=== PATIENT | female | born 1950 | race Caucasian/White ===

== ENCOUNTER 2018-01-30 07:44 | Day surgery (SDC) | payer MEDICARE | END 2018-01-30 22:46 | disposition home or self-care (01) | LOC: MOI US 07:44 | PROC: 0HBT3ZX Excision of Right Breast, Percutaneous Approach, Diagnostic (ICD-10-PCS; principal; 2018-01-30) | DX: C50.911 Malignant neoplasm of unspecified site of right female breast (principal); Z17.0 Estrogen receptor positive status [ER+] | CPT/HCPCS: 19083; 19084; 38505; 76942; 77065; 88305; 88360; A4648; G0279 ==

== ENCOUNTER 2018-03-09 10:05 | Day surgery (SDC) | payer MEDICARE ==
[~2018-03-09] VITALS: Ht 157.5 cm; Wt 79.4 kg
[~2018-03-09 10:05] MED LIST: ALPR.5 PO; ASPI81CH PO; Advil200 M1 PO; CHOL10002 PO; FISH OIL 1,2001 EAC1 PO; Flonase 0.05% N16 GM; LORA1SY PO; MAGOXI400 PO; [UNRECOGNIZED DRUG - OTHER]; [UNRECOGNIZED DRUG - OTHER] PO
== END 2018-03-09 13:56 | disposition home or self-care (01) ==
LOC: ORSCMMR 10:05 → ORD 11:30 → ORSCMMR 11:30 → ORD 03-10 11:30
PROVIDERS: Surgery
PROC: B5131ZA Fluoroscopy of Right Jugular Veins using Low Osmolar Contrast, Guidance (ICD-10-PCS; principal; 2018-03-09 14:45)
PROC: 05HM33Z Insertion of Infusion Device into Right Internal Jugular Vein, Percutaneous Approach (ICD-10-PCS; principal; 2018-03-09 14:45)
DX: C50.411 Malignant neoplasm of upper-outer quadrant of right female breast (principal); C50.919 Malignant neoplasm of unspecified site of unspecified female breast; C77.3 Secondary and unspecified malignant neoplasm of axilla and upper limb lymph nodes; Z17.0 Estrogen receptor positive status [ER+]; I10 Essential (primary) hypertension; J44.9 Chronic obstructive pulmonary disease, unspecified; Z87.891 Personal history of nicotine dependence; Z79.82 Long term (current) use of aspirin; Z79.899 Other long term (current) drug therapy
CPT/HCPCS: 77001; C1788; J0690; J1642; J2250; J2370; J2405; J3010; J7120

== ENCOUNTER 2018-10-23 07:11 | Day surgery (SDC) | payer MEDICARE ==
[2018-10-26] MEDS ORDERED: LO-DOSE ASPIRIN81 MG PO (13:21)
[2018-10-26] MEDS ORDERED: ALBU90OI61 INH (13:22)
[2018-10-26] MEDS ORDERED: LOSA25 PO (13:22)
== END 2018-10-23 23:14 | disposition home or self-care (01) ==
LOC: MOI MAM 07:11 → MOI US 07:45 → MOI MAM 23:14
DX: C50.411 Malignant neoplasm of upper-outer quadrant of right female breast (principal); C77.3 Secondary and unspecified malignant neoplasm of axilla and upper limb lymph nodes
CPT/HCPCS: 19285; 19286; 77065; G0279

== ENCOUNTER 2018-10-25 11:08 | Day surgery (SDC) | payer MEDICARE ==
[2018-10-26] MEDS ORDERED: LO-DOSE ASPIRIN81 MG PO (13:21)
[2018-10-26] MEDS ORDERED: LOSA25 PO (13:22)
[2018-10-26] MEDS ORDERED: ALBU90OI61 INH (13:22)
== END 2018-10-25 22:51 | disposition home or self-care (01) ==
LOC: MOI US 11:08
PROC: BH40ZZZ Ultrasonography of Right Breast (ICD-10-PCS; principal; 2018-10-25)
DX: C77.3 Secondary and unspecified malignant neoplasm of axilla and upper limb lymph nodes (principal); C50.411 Malignant neoplasm of upper-outer quadrant of right female breast
CPT/HCPCS: 19285

== ENCOUNTER 2018-10-27 07:44 | Day surgery (SDC) | payer MEDICARE ==
[~2018-10-27] VITALS: Ht 157.5 cm; Wt 84.8 kg
[~2018-10-27 07:44] MED LIST changes: +ALBU90OI61 INH; +LO-DOSE ASPIRIN81 MG PO; +LOSA25 PO
--- NOTE | 2018-10-27 13:10 | NUR ---
10/27/18 1310 Kathy Glez RXS UPDATED PT'S MULTIPLE TIMES WHILE PT IN OR.
== END 2018-10-27 15:17 | disposition home or self-care (01) ==
LOC: ORSCSDS 07:44 → NM 09:00 → ORSCSDS 09:00
PROVIDERS: Surgery
PROC: 0HBT0ZZ Excision of Right Breast, Open Approach (ICD-10-PCS; principal; 2018-10-27 10:15)
PROC: 07B50ZZ Excision of Right Axillary Lymphatic, Open Approach (ICD-10-PCS; principal; 2018-10-27 10:15)
DX: C50.411 Malignant neoplasm of upper-outer quadrant of right female breast (principal); C77.3 Secondary and unspecified malignant neoplasm of axilla and upper limb lymph nodes; I10 Essential (primary) hypertension; J44.9 Chronic obstructive pulmonary disease, unspecified; Z87.891 Personal history of nicotine dependence; Z79.899 Other long term (current) drug therapy; Z79.82 Long term (current) use of aspirin; Z85.118 Personal history of other malignant neoplasm of bronchus and lung
CPT/HCPCS: 38792; 76098; 88307; A9270-GY; A9520; J0690; J1100; J2250; J2370; J2405; J2704; J3010; J7120; Q9968

== ENCOUNTER 2018-12-01 08:29 | Day surgery (SDC) | payer MEDICARE ==
[~2018-12-01] VITALS: Ht 157.5 cm; Wt 86.4 kg
--- NOTE | 2018-12-01 09:10 | NUR ---
Ambulatory in Day Surgery.PT REPORTS FEELING ANXIOUS-SHE TOOK A XANAX @ 0730 THIS AM.History, Chart, Medications and Allergies reviewed before start of procedure.Lungs clear T/O to Auscultation. Patient confirms NPO status and agrees with scheduled surgery. Patient reports completing Chlorhexadine shower X2 prior to admission to hospital.Surgical site prepped with 2% Chlorhexidine cloth wipe. Patient States Post-Procedure ride home has been arranged.
--- NOTE | 2018-12-01 11:46 | NUR ---
RECEIVED REPORT FROM DR BENSON. HE STATES TO PLACE FACE TENT. PT IS SLEEPING. VSS. RT BR ESPERANZA CDI.
--- NOTE | 2018-12-01 12:13 | NUR ---
PT AWAKE, CONVERSING WITH STAFF UPON ARRIVAL TO STEP. STATES "NUMBNESS" TO BREAST AREA. NO C/O PAIN. TO BEDSIDE.
--- NOTE | 2018-12-01 12:33 | NUR ---
PT MEDICATED FOR DISCOMFORT FOR RIDE HOME. PT STATES SHE HAD COMPLICATED COURSE AFTER PREVIOUS SURGERY RELATED TO PAIN CONTROL AND IS VERY NERVOUS ABOUT PAIN CONTROL AFTER THIS PROCEDURE. DISCUSSED STAYING ON TOP OF PAIN AND NOT "CHASING" IT. PT VERBALIZES UNDERSTANDING AND AGREEMENT.
--- NOTE | 2018-12-01 13:11 | NUR ---
SUMMARY: PT HAD UNCOMPLICATED POST PROCEDURE COURSE. PAIN CONTROLLED BY DISCHARGE. ABLE TO DRESS SELF AND AMBULATE IN DEPARTMENT - STEADY ON FEET. PO INTAKE WITHOUT DIFFICULTY. REVIEWED DISCHARGE INSTRUCTIONS WITH PATIENT AND , BOTH OF WHOM VERBALIZE UNDERSTANDING AND ARE ABLE TO REPEAT PERTINENT INFORMATION. IV DC TIP INTACT AND PATIENT DC HOME AMBULATORY. TO DRIVE HER. DRESSING TO RIGHT BREAST AREA CDI. BINDER IN PLACE.
== END 2018-12-01 23:08 | disposition home or self-care (01) ==
LOC: ORSCMMR 08:29 → ORD 12-22 07:30
PROVIDERS: Surgery
PROC: 0HBT0ZZ Excision of Right Breast, Open Approach (ICD-10-PCS; principal; 2018-12-01 10:00)
DX: C50.411 Malignant neoplasm of upper-outer quadrant of right female breast (principal); C77.3 Secondary and unspecified malignant neoplasm of axilla and upper limb lymph nodes; I10 Essential (primary) hypertension; F41.9 Anxiety disorder, unspecified; Z79.899 Other long term (current) drug therapy; Z87.891 Personal history of nicotine dependence
CPT/HCPCS: 88307; A9270-GY; J0690; J1100; J2250; J2405; J2704; J3010; J7120

== ENCOUNTER 2020-05-29 08:22 | Inpatient (IN) | payer MEDICARE ==
[~2020-05-29] VITALS: Ht 157.5 cm; Wt 86.1 kg
[~2020-05-29 08:22] MED LIST changes: -ALBU90OI61 INH; -ALPR.5 PO; -CHOL10002 PO; -Flonase 0.05% N16 GM; -LO-DOSE ASPIRIN81 MG PO; -LOSA25 PO; -MAGOXI400 PO; -[UNRECOGNIZED DRUG - OTHER]; -[UNRECOGNIZED DRUG - OTHER] PO
[2020-05-29 08:35] LABS: Base Excess Venous -8.4 mmol/L; Bicarbonate Venous 17.7 mmol/L (24.0-30.0); PCO2 Venous 47.5 mmHg (38-42); PO2 Venous 98.8 mmHg (38-42)
[2020-05-29 08:36] LABS: pH Blood Venous 7.22 (7.34-7.37)
[2020-05-29 08:49] LABS: BASOPHILS ABSOLUTE AUTO 0.06 K/mm3 (0.00-0.23); BASOPHILS PERCENT AUTO 1 % (0-2); EOSINOPHILS ABSOLUTE AUTO 0.13 K/mm3 (0.00-0.68); EOSINOPHILS PERCENT AUTO 1 % (0-6); Hematocrit 48.2 % (33.0-51.0); Hemoglobin 15.9 g/dL (11.5-16.0); IMMATURE GRAN ABSOLUTE AUTO 0.12 K/mm3 (0.00-0.10); IMMATURE GRAN PERCENT AUTO 1 % (0-1); LYMPHOCYTES ABSOLUTE AUTO 3.72 K/mm3 (0.84-5.20); LYMPHOCYTES PERCENT AUTO 37 % (21-46); MONOCYTES ABSOLUTE AUTO 0.75 K/mm3 (0.16-1.47); MONOCYTES PERCENT AUTO 8 % (4-13); Mean Corpuscular HGB 31.3 pg (26.0-34.0); Mean Corpuscular Volume 95 fL (80-100); Mean Platelet Volume 9.8 fL (9.1-12.4); NEUTROPHILS ABSOLUTE AUTO 5.19 K/mm3 (1.96-9.15); NEUTROPHILS PERCENT AUTO 52 % (41-73); Platelet Count 225 K/mm3 (150-400); RDW Standard Deviation 45.7 fL (35.1-46.3); Red Blood Cell Count 5.08 M/mm3 (3.80-5.20); White Blood Cell Count 9.97 K/mm3 (4.00-11.30)
[2020-05-29 09:12] LABS: Alanine Aminotransfer (ALT/SGP 69 U/L (12-78); Albumin, Blood 3.4 g/dL (3.4-5.0); Albumin/Globulin Ratio 0.8 (0.8-1.8); Alk Phos 102 U/L (50-136); Anion Gap 11 mmol/L (6-16); Aspartate Aminotrans (AST/SGOT 69 U/L (12-37); Bilirubin, Total 0.5 mg/dL (0.1-1.0); Blood Urea Nitrogen 14 mg/dL (8-24); Bun/Creatinine Ratio 21.7 (12.0-20.0); CO2, Blood 22 mmol/L (21-32); Chloride, Blood 101 mmol/L (98-108); Creatinine, Blood 0.65 mg/dL (0.40-1.00); Globulin, Blood 4.1 g/dL (2.2-4.0); Glomerular Filtration Rate >60 (60-); Glucose, Blood 317 mg/dL (70-99); Potassium, Blood 3.9 mmol/L (3.5-5.5); Sodium, Blood 134 mmol/L (136-145); Total Protein, Blood 7.5 g/dL (6.4-8.2); Troponin I <0.015 ng/mL (0.000-0.040)
[2020-05-29] MEDS ORDERED: LOSA25 PO (12:15)
[2020-05-29] MEDS ORDERED: ALPR.25 PO (12:16)
[2020-05-29] MEDS ORDERED: ALBU90OI61 INH (12:16)
[2020-05-29] MEDS ORDERED: ARIMIDEX1 M1 PO (12:17)
[2020-05-29] MEDS ORDERED: Flonase 0.05% N16 GM (12:19)
[2020-05-29] MEDS ORDERED: MAGOXI400 PO (12:35)
[2020-05-29] MEDS ORDERED: VITAMIN D325 MC3 PO (12:36)
[2020-05-29] MEDS ORDERED: ASPIR 8181 M1 PO (12:37)
[2020-05-29] MEDS ORDERED: [UNRECOGNIZED DRUG - OTHER] PO (12:37)
[2020-05-29] MEDS ORDERED: [UNRECOGNIZED DRUG - OTHER] PO (12:38)
[2020-05-29] MEDS ORDERED: CALCIUM PO (12:38)
--- NOTE | 2020-05-29 14:08 | NUR ---
Echocardiogram completed.
[2020-05-29 14:41] LABS: Adenovirus Not Detected (NOT DETECT); Bordetella pertussis Not Detected (NOT DETECT); Chlamydophila pneumoniae Not Detected (NOT DETECT); Coronavirus 229E Not Detected (NOT DETECT); Coronavirus HKU1 Not Detected (NOT DETECT); Coronavirus NL63 Not Detected (NOT DETECT); Coronavirus OC43 Not Detected (NOT DETECT); Human Metapneumovirus Not Detected (NOT DETECT); Human Rhinovirus/Enterovirus Detected (NOT DETECT); Influenza A/2009-H1 Not Detected (NOT DETECT); Influenza A/H1 Not Detected (NOT DETECT); Influenza A/H3 Not Detected (NOT DETECT); Influenza B Not Detected (NOT DETECT); Mycoplasma pneumoniae Not Detected (NOT DETECT); Parainfluenza Virus 1 Not Detected (NOT DETECT); Parainfluenza Virus 2 Not Detected (NOT DETECT); Parainfluenza Virus 3 Not Detected (NOT DETECT); Parainfluenza Virus 4 Not Detected (NOT DETECT); Respiratory Syncytial Virus Not Detected (NOT DETECT); SARS-Cov-2 (COVID-19), BioFire Not Detected (NOT DETECT)
--- NOTE | 2020-05-29 18:47 | NUR ---
SUMMARY PT ARRIVED TO ICU 4 FROM ER AT 1310 ON BIPAP. PT TOLERATING BIPAP WELL, CALM AND COOPERATIVE. ECHO DONE ON ADMIT. THIS EVENING PT IS ABLE TO TAKE A BREAK FROM BIPAP WITHOUT DISTRESS. ON 4L NC WHILE ON BREAK. PT RECEIVED LASIX IN ER. NO DISTRESS SINCE ARRIVAL TO ICU. USES CALL LIGHT APPROPRIATELY AND GETS OOB WITH MINIMAL ASSISTANCE.
[2020-05-30 04:32] LABS: BASOPHILS ABSOLUTE AUTO 0.02 K/mm3 (0.00-0.23); BASOPHILS PERCENT AUTO 0 % (0-2); EOSINOPHILS ABSOLUTE AUTO 0.05 K/mm3 (0.00-0.68); EOSINOPHILS PERCENT AUTO 1 % (0-6); Hematocrit 41.7 % (33.0-51.0); IMMATURE GRAN ABSOLUTE AUTO 0.05 K/mm3 (0.00-0.10); IMMATURE GRAN PERCENT AUTO 1 % (0-1); LYMPHOCYTES PERCENT AUTO 17 % (21-46); MONOCYTES ABSOLUTE AUTO 0.64 K/mm3 (0.16-1.47); MONOCYTES PERCENT AUTO 10 % (4-13); Mean Corpuscular HGB 31.4 pg (26.0-34.0); Mean Corpuscular HGB Conc 33.6 g/dL (31.5-36.5); Mean Corpuscular Volume 94 fL (80-100); Mean Platelet Volume 9.4 fL (9.1-12.4); NEUTROPHILS ABSOLUTE AUTO 4.61 K/mm3 (1.96-9.15); NEUTROPHILS PERCENT AUTO 71 % (41-73); Platelet Count 169 K/mm3 (150-400); RDW Coefficient Variation 13.2 % (11.7-14.2); RDW Standard Deviation 45.2 fL (35.1-46.3); Red Blood Cell Count 4.46 M/mm3 (3.80-5.20); White Blood Cell Count 6.47 K/mm3 (4.00-11.30)
[2020-05-30 04:37] LABS: PCO2 Arterial 46.6 mmHg (35-45); PO2 Arterial 84.1 mmHg (80-100); pH Blood Arterial 7.41 (7.35-7.45)
[2020-05-30 04:57] LABS: Anion Gap 5 mmol/L (6-16); Blood Urea Nitrogen 14 mg/dL (8-24); Bun/Creatinine Ratio 21.4 (12.0-20.0); C-REACTIVE PROTEIN, EXT RANGE 0.424 mg/dL (0.000-0.300); CO2, Blood 29 mmol/L (21-32); Calcium, Blood 8.3 mg/dL (8.5-10.1); Chloride, Blood 102 mmol/L (98-108); Creatinine, Blood 0.65 mg/dL (0.40-1.00); Glomerular Filtration Rate >60 (60-); Glucose, Blood 107 mg/dL (70-99); Potassium, Blood 3.6 mmol/L (3.5-5.5); Sodium, Blood 136 mmol/L (136-145); Troponin I 0.083 ng/mL (0.000-0.040)
--- NOTE | 2020-05-30 05:44 | NUR ---
SHIFT SUMMARY PT A&O X4. CALL TO SKIVER OPERATOR RHIANNON THIS SHIFT @ APPROX 1945 D/T PT REPORT OF "I'M GETTING A LITTLE ANXIOUS." PT REQUESTING HOME DOSE OF XANAX. SKIVER OPERATOR W/ 1X ORDER FOR PRN XANAX & INSTRUCTION FOR HOME MEDS TO BE FURTHER ADDRESSED BY DAY SHIFT MD. XANAX GIVEN PER EMAR W/ NO FURTHER ANXIETY THIS SHIFT. PT VSS. MONITOR SHOWS NSR, HR 70's-80's. SPO2 > 92% ON 4L NC UPON CARE ASSUMPTION, TITRATED TO 2L NC W/ PT TOLERATING WELL. LUNG SOUNDS W/ WHEEZE. BREATHING TX PROVIDED BY RT X1 THIS SHIFT W/ IMPROVEMENT. BIPAP ON STANDBY AT BEDSIDE. NO FURTHER EVENTS.
--- NOTE | 2020-05-30 08:00 | NUR ---
Assumed care of pt at 0700. Bedside report received from Rita NAVARRETE. Pt sleeping at time of report. On assessment, pt is A&O x 4. Answers questions. Follows commands. Verbalizes needs. Stands and mobilizes around room with supervision. Pt steady on feet. Denies shortness of breath with activity. SR per monitor. BP stable. Voids urine into toilet. Nitro paste removed from left chest wall, as order is no longer active. Pt denies chest pain. Bed in lowest position. Call light in reach. Pt denies need at this time.
--- NOTE | 2020-05-30 12:58 | NUR ---
Dr Humphrey and Dr Boone have both been in to see patient. Pt states she would like to stay overnight because she isn't quite feeling back to baseline. Both providers agreee that patient is okay for medical floor status with telemetry. Dr Humphrey is okay with patient having home xanax. States plan to discontinue rocephin. Pt has been sitting up in chair since breakfast, tolerating well.
--- NOTE | 2020-05-30 16:21 | NUR ---
Call placed to Dr Humphrey to ask if patient needs cardiology consultation for new diagnosis of heart failure. Pt sees Dr Villagomez as outpatient for hypertension. Provider states pt only needs to follow up with simulation developer as outpatient. This RN placed call to heart center to schedule appointment, but office is closed. Instructed patient to call office on Tuesday morning. Also educated pt and her spouse about daily weights and measuring blood pressure daily, before taking daily meds. Instructed to write down weights and BP and take to doctor appointments. Pt and spouse verbalize understanding of education.
--- NOTE | 2020-05-30 16:44 | NUR ---
Pt assigned to room 361. Telephone report given to Verónica NAVARRETE. Pt updated. Plan to transfer patient to room when room is clean. Pt remains A&O x 4. Independent in room. Visiting with spouse at bedside. Pt took shower, tolerated well. Pt remains on room air. SR per heart monitor.
--- NOTE | 2020-05-30 17:20 | NUR ---
SHIFT SUMMARY/TRANSFER PT TRANSFERED FROM ICU TO 361. PT ORIENTED TO ROOM. CALL LIGHT IN REACH. PT UP IN CHAIR, EATING DINNER. ICE WATER PROVIDED. PT STATES SHE HAS NO NEEDS AT THIS TIME. SPOUSE IN ROOM, SITTING AT BEDSIDE.
--- NOTE | 2020-05-31 00:05 | NUR ---
05/30/201944 PT UP AMBULATING AROUND ENTIRE LOOP OF HALLS.
--- NOTE | 2020-05-31 04:46 | NUR ---
SHIFT SUMMARY: 69 Y/O OBESE FEMALE RESTED COMFORTABLY ALL SHIFT; DENIES PAIN OR NAUSEA OR DYSPNEA; PT ABLE TO AMBULATE ENTIRE LOOP OF HALLS WITH THIS NURSE, GAIT STEADY AND EVEN WITHOUT ISSUE; EAGER TO RETURN HOME; BED LOW POSITION WITH CALL LIGHT AT SIDE.
[2020-05-31 05:23] LABS: BASOPHILS ABSOLUTE AUTO 0.03 K/mm3 (0.00-0.23); BASOPHILS PERCENT AUTO 1 % (0-2); EOSINOPHILS ABSOLUTE AUTO 0.07 K/mm3 (0.00-0.68); EOSINOPHILS PERCENT AUTO 1 % (0-6); Hematocrit 41.7 % (33.0-51.0); IMMATURE GRAN ABSOLUTE AUTO 0.03 K/mm3 (0.00-0.10); IMMATURE GRAN PERCENT AUTO 1 % (0-1); LYMPHOCYTES PERCENT AUTO 20 % (21-46); MONOCYTES ABSOLUTE AUTO 0.65 K/mm3 (0.16-1.47); MONOCYTES PERCENT AUTO 11 % (4-13); Mean Corpuscular HGB 31.3 pg (26.0-34.0); Mean Corpuscular HGB Conc 33.6 g/dL (31.5-36.5); Mean Corpuscular Volume 93 fL (80-100); Mean Platelet Volume 9.8 fL (9.1-12.4); NEUTROPHILS ABSOLUTE AUTO 4.13 K/mm3 (1.96-9.15); NEUTROPHILS PERCENT AUTO 68 % (41-73); Platelet Count 168 K/mm3 (150-400); RDW Coefficient Variation 13.2 % (11.7-14.2); RDW Standard Deviation 44.9 fL (35.1-46.3); Red Blood Cell Count 4.47 M/mm3 (3.80-5.20); White Blood Cell Count 6.11 K/mm3 (4.00-11.30)
[2020-05-31 05:48] LABS: Alanine Aminotransfer (ALT/SGP 59 U/L (12-78); Albumin, Blood 3.5 g/dL (3.4-5.0); Alk Phos 77 U/L (50-136); Anion Gap 6 mmol/L (6-16); Aspartate Aminotrans (AST/SGOT 43 U/L (12-37); Bilirubin, Total 0.7 mg/dL (0.1-1.0); Blood Urea Nitrogen 21 mg/dL (8-24); Bun/Creatinine Ratio 33.9 (12.0-20.0); CHOL/HDL RATIO 3.1; CO2, Blood 28 mmol/L (21-32); Calcium, Blood 8.6 mg/dL (8.5-10.1); Chloride, Blood 100 mmol/L (98-108); Cholesterol 212 mg/dL (50-200); Creatinine, Blood 0.62 mg/dL (0.40-1.00); Globulin, Blood 3.6 g/dL (2.2-4.0); Glomerular Filtration Rate >60 (60-); Glucose, Blood 97 mg/dL (70-99); HDL Cholesterol 69 mg/dL (>39); LDL/HDL RATIO 1.6; Low Density Lipoprotein Chol 111 mg/dL (0-110); Potassium, Blood 3.3 mmol/L (3.5-5.5); Sodium, Blood 134 mmol/L (136-145); Total Protein, Blood 7.1 g/dL (6.4-8.2); Triglycerides 159 mg/dL (30-160); Very Low Density Lipoprot Chol 31 mg/dL (6-32)
[2020-05-31] MEDS ORDERED: METO25ER PO (16:30)
[2020-05-31] MEDS ORDERED: FURO20 PO (16:31)
[2020-05-31] MEDS ORDERED: POTCHL20ER PO (16:31)
[2020-05-31] MEDS ORDERED: ANAS1 PO (16:32)
--- NOTE | 2020-05-31 17:15 | NUR ---
DISCHARGED PT DISCHARGED AFTER PT & WAS EDUCATED ON NEW MEDICATIONS & FOLLOW UP APPOINTMENTS. PT & STATE THAT THEY HAVE NO FURTHER QUESTIONS AT THIS TIME. NO ACUTE CHANGES IN ASSESSMENT AT THIS TIME. PT WHEELED OUT BY AIDE & DRIVEN HOME BY
== END 2020-05-31 16:59 | disposition home or self-care (01) | DRG 189 ==
LOC: ER 08:22 → ICUE 08:23 → ICUW 08:23 → ICUE 12:58 → MEDS 05-30 17:20
PROVIDERS: Emergency Medicine; Family Medicine; Internal Medicine Pulmonary Disease; ADMIT Hospitalist
DX: J96.01 Acute respiratory failure with hypoxia (principal); J81.1 Chronic pulmonary edema; I42.9 Cardiomyopathy, unspecified; R04.2 Hemoptysis; J96.02 Acute respiratory failure with hypercapnia; Z85.3 Personal history of malignant neoplasm of breast; Z85.118 Personal history of other malignant neoplasm of bronchus and lung
CPT/HCPCS: 0202U; 36415; 36600; 71045; 71250; 80048; 80053; 80061; 82550; 82728; 82803; 83036; 83615; 83880; 84145; 84484; 85025; 85379; 86140; 87040; 93005; 93010; 93306; 94640; 94660; 96374; 99285-25; A9270; J0696; J1940; J1956; J2060

== ENCOUNTER 2020-12-14 05:24 | Inpatient (IN) | payer MEDICARE ==
[~2020-12-14] VITALS: Ht 157.5 cm; Wt 86.2 kg
[~2020-12-14 05:24] MED LIST changes: +ALBU90OI61 INH; +ALPR.25 PO; +ANAS1 PO; +ARIMIDEX1 M1 PO; +ASPIR 8181 M1 PO; +CALCIUM PO; +FURO20 PO; +Flonase 0.05% N16 GM; +LOSA25 PO; +MAGOXI400 PO; +METO25ER PO; +POTCHL20ER PO; +VITAMIN D325 MC3 PO; +[UNRECOGNIZED DRUG - OTHER] PO; +[UNRECOGNIZED DRUG - OTHER] PO
[2020-12-14 06:06] LABS: BASOPHILS ABSOLUTE AUTO 0.02 K/mm3 (0.00-0.23); BASOPHILS PERCENT AUTO 0 % (0-2); EOSINOPHILS ABSOLUTE AUTO 0.05 K/mm3 (0.00-0.68); EOSINOPHILS PERCENT AUTO 1 % (0-6); Hematocrit 41.8 % (33.0-51.0); IMMATURE GRAN ABSOLUTE AUTO 0.02 K/mm3 (0.00-0.10); IMMATURE GRAN PERCENT AUTO 0 % (0-1); LYMPHOCYTES ABSOLUTE AUTO 0.48 K/mm3 (0.84-5.20); LYMPHOCYTES PERCENT AUTO 10 % (21-46); MONOCYTES ABSOLUTE AUTO 0.36 K/mm3 (0.16-1.47); MONOCYTES PERCENT AUTO 8 % (4-13); Mean Corpuscular HGB 31.5 pg (26.0-34.0); Mean Corpuscular HGB Conc 33.5 g/dL (31.5-36.5); Mean Corpuscular Volume 94 fL (80-100); Mean Platelet Volume 10.1 fL (9.1-12.4); NEUTROPHILS PERCENT AUTO 80 % (41-73); Platelet Count 135 K/mm3 (150-400); RDW Coefficient Variation 13.4 % (11.7-14.2); RDW Standard Deviation 46.3 fL (35.1-46.3); Red Blood Cell Count 4.45 M/mm3 (3.80-5.20); White Blood Cell Count 4.63 K/mm3 (4.00-11.30)
[2020-12-14 06:22] LABS: Alanine Aminotransfer (ALT/SGP 113 U/L (12-78); Albumin, Blood 3.5 g/dL (3.4-5.0); Alk Phos 88 U/L (50-136); Anion Gap 6 mmol/L (6-16); Aspartate Aminotrans (AST/SGOT 113 U/L (12-37); Bilirubin, Total 0.4 mg/dL (0.1-1.0); Blood Urea Nitrogen 13 mg/dL (8-24); Bun/Creatinine Ratio 17.4 (12.0-20.0); CO2, Blood 27 mmol/L (21-32); Calcium, Blood 8.5 mg/dL (8.5-10.1); Chloride, Blood 102 mmol/L (98-108); Creatinine, Blood 0.75 mg/dL (0.40-1.00); Globulin, Blood 3.6 g/dL (2.2-4.0); Glomerular Filtration Rate >60 (60-); Glucose, Blood 124 mg/dL (70-99); Potassium, Blood 3.9 mmol/L (3.5-5.5); Sodium, Blood 135 mmol/L (136-145); Total Protein, Blood 7.1 g/dL (6.4-8.2)
[2020-12-14 08:59] LABS: PCO2 Arterial 34.9 mmHg (35-45); PO2 Arterial 71.9 mmHg (80-100); pH Blood Arterial 7.47 (7.35-7.45)
[2020-12-14] MEDS ORDERED: AZIT500 PO (13:12)
[2020-12-14] MEDS ORDERED: SYMBICORT 160-4.6 GM INH (13:13)
[2020-12-14] MEDS ORDERED: PRED20 PO (13:14)
== END 2020-12-14 15:38 | disposition home or self-care (01) | DRG 291 ==
LOC: ER 05:24 → ERHOLD 08:56
PROVIDERS: Emergency Medicine; ADMIT Internal Medicine
DX: I11.0 Hypertensive heart disease with heart failure (principal); J96.01 Acute respiratory failure with hypoxia; J44.1 Chronic obstructive pulmonary disease with (acute) exacerbation; E87.1 Hypo-osmolality and hyponatremia; Z20.822 Contact with and (suspected) exposure to COVID-19; M19.90 Unspecified osteoarthritis, unspecified site; D69.6 Thrombocytopenia, unspecified; F17.210 Nicotine dependence, cigarettes, uncomplicated; Z85.3 Personal history of malignant neoplasm of breast; Z98.890 Other specified postprocedural states; Z88.0 Allergy status to penicillin; Z88.1 Allergy status to other antibiotic agents; Z91.041 Radiographic dye allergy status; Z90.710 Acquired absence of both cervix and uterus; Z79.82 Long term (current) use of aspirin; Z79.899 Other long term (current) drug therapy
CPT/HCPCS: 36415; 36600; 71046; 80053; 82803; 83880; 85025; 94640; 94644; 96374; 96375; 99285-25; A9270; J1940; J2930

== ENCOUNTER → 2021-06-10 | Outpatient (CLI) | payer MEDICARE ==
[~2021-06-10] MED LIST changes: +AZIT500 PO; +PRED20 PO; +SYMBICORT 160-4.6 GM INH
[2021-06-10 19:00] LABS: BASOPHILS ABSOLUTE AUTO 0.01 K/mm3 (0.00-0.23); BASOPHILS PERCENT AUTO 0 % (0-2); EOSINOPHILS ABSOLUTE AUTO 0.01 K/mm3 (0.00-0.68); EOSINOPHILS PERCENT AUTO 0 % (0-6); Hematocrit 44.8 % (33.0-51.0); Hemoglobin 15.2 g/dL (11.5-16.0); IMMATURE GRAN ABSOLUTE AUTO 0.05 K/mm3 (0.00-0.10); IMMATURE GRAN PERCENT AUTO 1 % (0-1); LYMPHOCYTES ABSOLUTE AUTO 0.56 K/mm3 (0.84-5.20); LYMPHOCYTES PERCENT AUTO 13 % (21-46); MONOCYTES ABSOLUTE AUTO 0.46 K/mm3 (0.16-1.47); MONOCYTES PERCENT AUTO 11 % (4-13); Mean Corpuscular HGB 31.4 pg (26.0-34.0); Mean Corpuscular HGB Conc 33.9 g/dL (31.5-36.5); Mean Corpuscular Volume 93 fL (80-100); Mean Platelet Volume 9.3 fL (9.1-12.4); NEUTROPHILS PERCENT AUTO 75 % (41-73); Platelet Count 188 K/mm3 (150-400); RDW Standard Deviation 47.2 fL (35.1-46.3); Red Blood Cell Count 4.84 M/mm3 (3.80-5.20); White Blood Cell Count 4.29 K/mm3 (4.00-11.30)
[2021-06-10 19:15] LABS: Alanine Aminotransfer (ALT/SGP 56 U/L (12-78); Albumin, Blood 4.3 g/dL (3.4-5.0); Albumin/Globulin Ratio 1.2 (0.8-1.8); Alk Phos 104 U/L (40-126); Anion Gap 10 mmol/L (6-16); Aspartate Aminotrans (AST/SGOT 41 U/L (12-37); Bilirubin, Total 0.6 mg/dL (0.1-1.0); Blood Urea Nitrogen 20 mg/dL (8-24); Bun/Creatinine Ratio 24.7 (12.0-20.0); CO2, Blood 31 mmol/L (21-32); Calcium, Blood 9.2 mg/dL (8.5-10.1); Chloride, Blood 93 mmol/L (98-108); Creatinine, Blood 0.81 mg/dL (0.40-1.00); Globulin, Blood 3.6 g/dL (2.2-4.0); Glomerular Filtration Rate >60 (60-); Glucose, Blood 121 mg/dL (70-99); Potassium, Blood 4.2 mmol/L (3.5-5.5); Sodium, Blood 134 mmol/L (136-145); Total Protein, Blood 7.9 g/dL (6.4-8.2)
== END ==
LOC: LAB SHORT 18:55
PROVIDERS: Physician Assistant
DX: R07.89 Other chest pain (principal)
CPT/HCPCS: 80053; 83880; 85025; 85379

== ENCOUNTER 2021-07-29 18:05 | Emergency (ER) | payer MEDICARE ==
[~2021-07-29] VITALS: Ht 157.5 cm; Wt 84.4 kg
== END 2021-07-29 20:20 | disposition home or self-care (01) ==
LOC: ER 18:05
DX: S20.211A Contusion of right front wall of thorax, initial encounter (principal); R05.9 Cough, unspecified; Z91.048 Other nonmedicinal substance allergy status; Z88.0 Allergy status to penicillin; Z88.1 Allergy status to other antibiotic agents; Z79.82 Long term (current) use of aspirin; Z79.899 Other long term (current) drug therapy; I11.0 Hypertensive heart disease with heart failure; I50.9 Heart failure, unspecified; J44.9 Chronic obstructive pulmonary disease, unspecified; Z87.891 Personal history of nicotine dependence; X58.XXXA Exposure to other specified factors, initial encounter
CPT/HCPCS: 71046; 99283-25; A9270

== ENCOUNTER → 2021-08-18 | Outpatient (CLI) | payer MEDICARE ==
[2021-08-18 15:01] LABS: BASOPHILS ABSOLUTE AUTO 0.03 K/mm3 (0.00-0.23); BASOPHILS PERCENT AUTO 0 % (0-2); EOSINOPHILS ABSOLUTE AUTO 0.05 K/mm3 (0.00-0.68); EOSINOPHILS PERCENT AUTO 1 % (0-6); Hematocrit 42.6 % (33.0-51.0); Hemoglobin 14.1 g/dL (11.5-16.0); IMMATURE GRAN ABSOLUTE AUTO 0.03 K/mm3 (0.00-0.10); IMMATURE GRAN PERCENT AUTO 0 % (0-1); LYMPHOCYTES ABSOLUTE AUTO 0.96 K/mm3 (0.84-5.20); LYMPHOCYTES PERCENT AUTO 11 % (21-46); MONOCYTES ABSOLUTE AUTO 0.67 K/mm3 (0.16-1.47); MONOCYTES PERCENT AUTO 8 % (4-13); Mean Corpuscular HGB 31.5 pg (26.0-34.0); Mean Corpuscular HGB Conc 33.1 g/dL (31.5-36.5); Mean Corpuscular Volume 95 fL (80-100); Mean Platelet Volume 9.7 fL (9.1-12.4); NEUTROPHILS ABSOLUTE AUTO 6.71 K/mm3 (1.96-9.15); NEUTROPHILS PERCENT AUTO 79 % (41-73); Platelet Count 235 K/mm3 (150-400); RDW Coefficient Variation 14.3 % (11.7-14.2); RDW Standard Deviation 49.9 fL (35.1-46.3); Red Blood Cell Count 4.48 M/mm3 (3.80-5.20); White Blood Cell Count 8.45 K/mm3 (4.00-11.30)
[2021-08-18 15:11] LABS: Alanine Aminotransfer (ALT/SGP 35 U/L (12-78); Albumin, Blood 3.9 g/dL (3.4-5.0); Albumin/Globulin Ratio 0.9 (0.8-1.8); Alk Phos 117 U/L (40-126); Anion Gap 13 mmol/L (6-16); Aspartate Aminotrans (AST/SGOT 20 U/L (12-37); Bilirubin, Total 0.7 mg/dL (0.1-1.0); Blood Urea Nitrogen 12 mg/dL (8-24); CO2, Blood 29 mmol/L (21-32); Calcium, Blood 9.1 mg/dL (8.5-10.1); Chloride, Blood 95 mmol/L (98-108); Creatinine, Blood 0.86 mg/dL (0.40-1.00); Globulin, Blood 4.2 g/dL (2.2-4.0); Glomerular Filtration Rate >60 (60-); Glucose, Blood 123 mg/dL (70-99); Potassium, Blood 3.5 mmol/L (3.5-5.5); Sodium, Blood 137 mmol/L (136-145); Total Protein, Blood 8.1 g/dL (6.4-8.2)
== END | disposition home or self-care (01) ==
LOC: LAB SHORT 14:56
PROVIDERS: Physician Assistant
DX: R07.89 Other chest pain (principal); R10.9 Unspecified abdominal pain
CPT/HCPCS: 80053; 83690; 85025

== ENCOUNTER 2021-10-30 09:27 | Inpatient (IN) | payer MEDICARE ==
[~2021-10-30] VITALS: Ht 157.5 cm; Wt 81.5 kg
[2021-10-30 09:49] LABS: BASOPHILS ABSOLUTE AUTO 0.05 K/mm3 (0.00-0.23); BASOPHILS PERCENT AUTO 0 % (0-2); EOSINOPHILS ABSOLUTE AUTO 0.07 K/mm3 (0.00-0.68); EOSINOPHILS PERCENT AUTO 1 % (0-6); Hematocrit 43.6 % (33.0-51.0); Hemoglobin 14.5 g/dL (11.5-16.0); IMMATURE GRAN PERCENT AUTO 1 % (0-1); LYMPHOCYTES ABSOLUTE AUTO 0.78 K/mm3 (0.84-5.20); LYMPHOCYTES PERCENT AUTO 7 % (21-46); MONOCYTES ABSOLUTE AUTO 0.62 K/mm3 (0.16-1.47); MONOCYTES PERCENT AUTO 5 % (4-13); Mean Corpuscular HGB 30.9 pg (26.0-34.0); Mean Corpuscular HGB Conc 33.3 g/dL (31.5-36.5); Mean Corpuscular Volume 93 fL (80-100); Mean Platelet Volume 9.6 fL (9.1-12.4); NEUTROPHILS PERCENT AUTO 87 % (41-73); Platelet Count 314 K/mm3 (150-400); RDW Coefficient Variation 13.7 % (11.7-14.2); RDW Standard Deviation 46.4 fL (35.1-46.3); Red Blood Cell Count 4.69 M/mm3 (3.80-5.20); White Blood Cell Count 11.92 K/mm3 (4.00-11.30)
[2021-10-30 10:08] LABS: Albumin, Blood 3.5 g/dL (3.4-5.0); Albumin/Globulin Ratio 0.8 (0.8-1.8); Bilirubin, Total 0.4 mg/dL (0.1-1.0); Bun/Creatinine Ratio 25.6 (12.0-20.0); Creatinine, Blood 0.74 mg/dL (0.40-1.00); Globulin, Blood 4.5 g/dL (2.2-4.0); Potassium, Blood 3.5 mmol/L (3.5-5.5)
[2021-10-30] MEDS ORDERED: MAGCHL64ER (15:03)
[2021-10-30] MEDS ORDERED: MULVITA PO (15:04)
[2021-10-30] MEDS ORDERED: ZINC15 PO (15:04)
[2021-10-30] MEDS ORDERED: OYSTER SHELL 51 EAC2 PO (15:05)
[2021-10-30] MEDS ORDERED: Coq-1030 MG PO (15:05)
[2021-10-30] MEDS ORDERED: LORA10ER PO (15:09)
[2021-10-30] MEDS ORDERED: IBUP800 PO (15:09)
[2021-10-30] MEDS ORDERED: Q-Tussin100 MG/5 M PO (15:10)
--- NOTE | 2021-10-30 18:37 | NUR ---
SHIFT SUMMARY PT ARRIVWED TO UNIT FROM ED DURING SHIFT. HR STABLE. BP STABLE. OXYGEN SATURATION MAINTAINED ABOVE 94% ON 4 L VIA NC. BIPAP AT BEDSIDE FOR RESCUE IF NEEDED. HAVE NOT NEEDED TO USE BIPAP SINCE PT ARRIVED TO UNIT. PT SBA TO BATHROOM. DIET ADVANCED PER PHYSICIAN TO CARDIAC D/T PT NO LONGER BEING IN RESPIRATORY DISTRESS. PT ASKED IF CARDIOLOGY WOULD BE CONSULTED, PHYSICIAN ASKED. PHYSICIAN STATED TO HAVE IT ADDRESSED TOMORROW WITH HOSPITALIST, WILL PASS ALONG INFORMATION. CALL LIGHT WITHIN REACH. NO CP OR PRESSURE. WILL CONT TO MONITOR UNTIL REPORT GIVEN TO NIGHTSHIFT RN.
--- NOTE | 2021-10-30 19:33 | NUR ---
UPDATE DURING ADMIT HX NOTED THAT PT HAD LYMPH NODES REMOVED AND PARTIAL R SIDED MASTECTOMY. SIGN AT DOOR STATING NO LAB DRAWS OR BP'S IN R ARM.
--- NOTE | 2021-10-30 20:42 | NUR ---
PT IS A&OX3. STATES SOB IS AT BASLINE AT THIS TIME. PT ON 5LPM WITH O2 SATS AT 97%. WILL MONITOR AND ATTEMPT TO WEAN O2. OTHER VSS AT THIS TIME. DENIES ANY QUESTION OR CONCERNS. CALL LIGHT IN REACH.
--- NOTE | 2021-10-30 23:27 | NUR ---
DR. DELAROSA ROUNDING ON UNIT. DISCUSSED PT HAVING X-RAY SHOWING PNEUMONIA BUT NO ANTIBIOTICS ORDERED. RECEIVED ORDER TO TEST PROCALCITONIN LEVELS IN A.M. NO ORDERS FOR ANTIBIOTICS AT THIS TIME.
--- NOTE | 2021-10-31 00:09 | NUR ---
PT SITTING UP IN BED WATCHING TV. FRESH WATER PROVIDED AT REQUEST. CALL LIGHT IN REACH.
[2021-10-31 04:20] LABS: BASOPHILS PERCENT AUTO 0 % (0-2); EOSINOPHILS PERCENT AUTO 0 % (0-6); Hematocrit 40.1 % (33.0-51.0); Hemoglobin 13.1 g/dL (11.5-16.0); IMMATURE GRAN ABSOLUTE AUTO 0.07 K/mm3 (0.00-0.10); IMMATURE GRAN PERCENT AUTO 1 % (0-1); LYMPHOCYTES ABSOLUTE AUTO 0.76 K/mm3 (0.84-5.20); LYMPHOCYTES PERCENT AUTO 9 % (21-46); MONOCYTES PERCENT AUTO 7 % (4-13); Mean Corpuscular HGB 30.8 pg (26.0-34.0); Mean Corpuscular HGB Conc 32.7 g/dL (31.5-36.5); Mean Corpuscular Volume 94 fL (80-100); Mean Platelet Volume 10.3 fL (9.1-12.4); NEUTROPHILS ABSOLUTE AUTO 6.69 K/mm3 (1.96-9.15); NEUTROPHILS PERCENT AUTO 82 % (41-73); Platelet Count 296 K/mm3 (150-400); RDW Coefficient Variation 13.5 % (11.7-14.2); RDW Standard Deviation 45.8 fL (35.1-46.3); Red Blood Cell Count 4.25 M/mm3 (3.80-5.20); White Blood Cell Count 8.12 K/mm3 (4.00-11.30)
[2021-10-31 04:45] LABS: Albumin, Blood 3.3 g/dL (3.4-5.0); Albumin/Globulin Ratio 0.8 (0.8-1.8); Bilirubin, Total 0.6 mg/dL (0.1-1.0); Bun/Creatinine Ratio 28.2 (12.0-20.0); Calcium, Blood 9.4 mg/dL (8.5-10.1); Creatinine, Blood 0.74 mg/dL (0.40-1.00); Globulin, Blood 4.1 g/dL (2.2-4.0); Potassium, Blood 3.4 mmol/L (3.5-5.5); Total Protein, Blood 7.4 g/dL (6.4-8.2)
--- NOTE | 2021-10-31 06:20 | NUR ---
PT HAS BEEN AWAKE ALL NIGHT. PT COMPLAINS OF OCCASIONAL COUGH WITH SCANT, PINK SPUTUM. HR HAS REMIANED IN SINUS RHYTHMS. O2 SATS IN MID 90'5 ON 4 LPM. UP TO BATHROOM WITH STAND BY ASSIST. PT BECOMES WHEEZY AFTER AMBULATION BUT SUBSIDES AFTER 2-3 MINUTES. PT DOES NOT APPEAR IN ANY RESPIRATORY DISTRESS. PT SITTING UP IN BED WATCHING TV DURING SHIFT. CALL LIGHT IN REACH.
--- NOTE | 2021-10-31 07:51 | NUR ---
AM ASSESSMENT: Pt resting in bed. LS very tight and wheezing throughout. SOB with activity and weak, non-productive cough at this time. States that sometimes she is able to cough something up. Pt currently on 4L o2 with biox 100% but getting up to bathroom. Will monitor. HR reg. BT positive. Pulses palp. Denies pain. VSS. Will continue to monitor.
--- NOTE | 2021-10-31 15:31 | NUR ---
Report given and care transfered to LANDON Mccrary. Stable at this time.
--- NOTE | 2021-10-31 15:52 | NUR ---
TOOK OVER CARE FROM LANDON RANGEL. ANIYAH IS COMPLAINING OF PAIN WITH COUGHING IN THE LEFT RIB CAGE/UNDER BREAST AREA. SHE SAYS IT IS NOT NEW BUT IT IS BOTHERSOME. ASKED FOR COUGH MEDICINE, CALL TO WITH ORDERS RECEIVED. COUGH IS PRODUCTIVE, CLEAR RETURN. SHE DID HAVE AN EPISODE OF BLOOD TINGED RETURN PRIOR TO CLAIRE AND I EXCHANGING BEDSIDE REPORT. CLEAR SINCE.
--- NOTE | 2021-10-31 18:08 | NUR ---
ANIYAH WAS UP IN THE BATHROOM BEFORE DINNER AND BEGAN FEELING ANXIOUS. SHE SAYS THAT SHE TRIES TO GET THE LAST BIT OF "WHATEVER IT IS" THAT SHE IS COUGHING UP AND IT GAVE HER SOME ANXIETY. SHE SAID THAT SHE STARTED FEELING SHORT OF BREATH, FELT HER HEART RATE SPEED UP AND THEN SHE PANICKED THAT SHE COULDN'T BREATHE. SHE PUT HER NC BACK ON AND WAS EATING HER DINNER TALKING ABOUT THE "EPISODE". WE DISCUSSED IT AND HOW TO MAKE IT BETTER. SHE DID OPT TO HAVE A XANAX. WILL CONTINUE TO MONITOR.
--- NOTE | 2021-10-31 22:37 | NUR ---
ASSUMED PT CARE FORM BOUBACAR NAVARRETE ON DAY SHIFT AT 1915. PT HAS BEEN A&OX3. UP INDEPENDENTLY TO VOID WITH STEADY GAIT. PT HAS HAD NO DIFFICULTY WITH RESPIRATIONS WHEN UP. PT REMOVED FROM O2 DUE TO SATS BEING AT 97% ON 1 LPM. O2 SATS DROPPING TO 85% WHEN FALLING ASLEEP, PLACED BACK ON 1 LPM, WILL MONITOR. SATS BETWEEN 95-97%. PT HAS PRODUCTIVE COUGH INTERMITENTLY. FRESH ICE WATER PROVIDED AT PT REQUEST. CALL LIGHT IN REACH.
--- NOTE | 2021-11-01 05:08 | NUR ---
PT HAS SLEPT WELL DURING OBGYN NURSE. TAKES SLEF INDEPENDENTLY TO THE BATHROOM. FRESH ICE WATER PROVIDED AT REQUEST. DENIED ANY OTHER NEEDS. CALL LIGHT IN REACH.
--- NOTE | 2021-11-01 14:56 | NUR ---
PLAN DR. SLATER CAME AND SPOKE WITH PT AND SPOUSE. PT STATES FEELING MUCH BETTER, PLAN WILL BE TO DO AN OVERNIGHT OXIMETRY AND PROBABLE DC TOMORROW AFTERNOON.
--- NOTE | 2021-11-01 16:41 | NUR ---
SUMMARY PT HAS DONE WELL T/O SHIFT. CURRENTLY ON RA AND TOLERATING WELL. HAS BEEN AMBULATING IN ROOM INDEPENDENTLY. PLAN FOR OVERNIGHT OX STUDY AND POSSIBLE DC HOME TOMORROW.
--- NOTE | 2021-11-02 05:17 | NUR ---
PT SLEPT THROUGHOUT NIGHT, NO CONCERNS. NIGHT OXIMETRY TEST COMPLETED BY RESPIRATORY THERAPY. CALL LIGHT IN REACH.
--- NOTE | 2021-11-02 06:04 | NUR ---
PT REQUESTED TO PREFORM SLEEP OX STUDY, STUDY PREFORMED, COPY OF STUDY PLACED IN PT CHART
[2021-11-02 06:24] LABS: BASOPHILS ABSOLUTE AUTO 0.04 K/mm3 (0.00-0.23); BASOPHILS PERCENT AUTO 1 % (0-2); EOSINOPHILS ABSOLUTE AUTO 0.09 K/mm3 (0.00-0.68); EOSINOPHILS PERCENT AUTO 2 % (0-6); Hematocrit 40.9 % (33.0-51.0); Hemoglobin 13.4 g/dL (11.5-16.0); IMMATURE GRAN ABSOLUTE AUTO 0.06 K/mm3 (0.00-0.10); IMMATURE GRAN PERCENT AUTO 1 % (0-1); LYMPHOCYTES ABSOLUTE AUTO 1.12 K/mm3 (0.84-5.20); LYMPHOCYTES PERCENT AUTO 19 % (21-46); MONOCYTES ABSOLUTE AUTO 0.83 K/mm3 (0.16-1.47); MONOCYTES PERCENT AUTO 14 % (4-13); Mean Corpuscular HGB 30.9 pg (26.0-34.0); Mean Corpuscular HGB Conc 32.8 g/dL (31.5-36.5); Mean Corpuscular Volume 94 fL (80-100); Mean Platelet Volume 9.5 fL (9.1-12.4); NEUTROPHILS ABSOLUTE AUTO 3.75 K/mm3 (1.96-9.15); NEUTROPHILS PERCENT AUTO 64 % (41-73); Platelet Count 271 K/mm3 (150-400); RDW Coefficient Variation 13.9 % (11.7-14.2); RDW Standard Deviation 47.5 fL (35.1-46.3); Red Blood Cell Count 4.34 M/mm3 (3.80-5.20); White Blood Cell Count 5.89 K/mm3 (4.00-11.30)
[2021-11-02 06:40] LABS: Bun/Creatinine Ratio 27.7 (12.0-20.0); Calcium, Blood 9.5 mg/dL (8.5-10.1); Creatinine, Blood 0.87 mg/dL (0.40-1.00); Magnesium, Blood 2.2 mg/dL (1.6-2.4); Potassium, Blood 3.7 mmol/L (3.5-5.5)
[2021-11-02] MEDS ORDERED: SPIR25 PO (11:38)
[2021-11-02] MEDS ORDERED: Prednisone10 MG (11:41)
--- NOTE | 2021-11-02 12:25 | NUR ---
DISCHARGE ED MEDS FAXED TO [facility]. DISCUSSED EDUCATION, DAILY WEIGHTS & WEIGHT LOG, DIET, O2. PT EXPRESSES UNDERSTANDING & IS EXCITED TO GO HOME. FEELS READY. WAITING FOR SPOUSE TO ARRIVE FOR TRANSPORTATION.
--- NOTE | 2021-11-02 13:15 | NUR ---
ESCORTED OUT VIA W/C w/ PORTABLE O2
== END 2021-11-02 13:14 | disposition home or self-care (01) | DRG 291 ==
LOC: ER 09:27 → PCU 09:28
PROVIDERS: Emergency Medicine; ADMIT Internal Medicine
PROC: 5A09357 Assistance with Respiratory Ventilation, Less than 24 Consecutive Hours, Continuous Positive Airway Pressure (ICD-10-PCS; principal; 2021-10-30)
DX: I11.0 Hypertensive heart disease with heart failure (principal); J96.01 Acute respiratory failure with hypoxia; I50.23 Acute on chronic systolic (congestive) heart failure; J81.0 Acute pulmonary edema; J91.8 Pleural effusion in other conditions classified elsewhere; J44.1 Chronic obstructive pulmonary disease with (acute) exacerbation; M19.90 Unspecified osteoarthritis, unspecified site; E55.9 Vitamin D deficiency, unspecified; F41.9 Anxiety disorder, unspecified; M81.0 Age-related osteoporosis without current pathological fracture; Z92.3 Personal history of irradiation; Z90.711 Acquired absence of uterus with remaining cervical stump; Z99.81 Dependence on supplemental oxygen; Z92.21 Personal history of antineoplastic chemotherapy; Z85.3 Personal history of malignant neoplasm of breast; Z90.11 Acquired absence of right breast and nipple; Z98.891 History of uterine scar from previous surgery; Z98.890 Other specified postprocedural states; Z87.891 Personal history of nicotine dependence; Z85.118 Personal history of other malignant neoplasm of bronchus and lung; Z88.0 Allergy status to penicillin; Z88.1 Allergy status to other antibiotic agents; Z91.041 Radiographic dye allergy status; Z79.51 Long term (current) use of inhaled steroids; Z79.82 Long term (current) use of aspirin; Z79.899 Other long term (current) drug therapy
CPT/HCPCS: 36415; 71045; 80048; 80053; 83735; 83880; 84145; 84484; 85025; 93005; 93010; 94640; 94660; 94664; 94760; 94761; 94762; 96374; 96375; 99285-25; A9270; J1650; J1940; J2930; J7512

== ENCOUNTER 2021-11-23 09:25 | Inpatient (IN) | payer MEDICARE ==
[~2021-11-23] VITALS: Ht 157.5 cm; Wt 81.1 kg
[~2021-11-23 09:25] MED LIST changes: +Coq-1030 MG PO; +IBUP800 PO; +LORA10ER PO; +MAGCHL64ER; +MULVITA PO; +OYSTER SHELL 51 EAC2 PO; +Prednisone10 MG; +Q-Tussin100 MG/5 M PO; +SPIR25 PO; +ZINC15 PO
[2021-11-23 09:45] LABS: PO2 Arterial 157 mmHg (80-100)
[2021-11-23 09:46] LABS: PCO2 Arterial 77.5 mmHg (35-45); pH Blood Arterial 7.15 (7.35-7.45)
[2021-11-23 09:55] LABS: BASOPHILS ABSOLUTE AUTO 0.09 K/mm3 (0.00-0.23); BASOPHILS PERCENT AUTO 1 % (0-2); EOSINOPHILS ABSOLUTE AUTO 0.15 K/mm3 (0.00-0.68); EOSINOPHILS PERCENT AUTO 1 % (0-6); Hematocrit 49.8 % (33.0-51.0); IMMATURE GRAN PERCENT AUTO 1 % (0-1); LYMPHOCYTES ABSOLUTE AUTO 4.11 K/mm3 (0.84-5.20); LYMPHOCYTES PERCENT AUTO 36 % (21-46); MONOCYTES ABSOLUTE AUTO 1.08 K/mm3 (0.16-1.47); MONOCYTES PERCENT AUTO 10 % (4-13); Mean Corpuscular HGB 31.1 pg (26.0-34.0); Mean Corpuscular HGB Conc 32.1 g/dL (31.5-36.5); Mean Corpuscular Volume 97 fL (80-100); Mean Platelet Volume 9.8 fL (9.1-12.4); NEUTROPHILS ABSOLUTE AUTO 5.85 K/mm3 (1.96-9.15); NEUTROPHILS PERCENT AUTO 51 % (41-73); Platelet Count 323 K/mm3 (150-400); RDW Coefficient Variation 14.2 % (11.7-14.2); RDW Standard Deviation 51.3 fL (35.1-46.3); Red Blood Cell Count 5.14 M/mm3 (3.80-5.20); White Blood Cell Count 11.38 K/mm3 (4.00-11.30)
[2021-11-23 10:14] LABS: Albumin, Blood 3.6 g/dL (3.4-5.0); Albumin/Globulin Ratio 0.9 (0.8-1.8); Bilirubin, Total 0.6 mg/dL (0.1-1.0); Bun/Creatinine Ratio 20.6 (12.0-20.0); Calcium, Blood 9.2 mg/dL (8.5-10.1); Creatinine, Blood 0.92 mg/dL (0.40-1.00); Globulin, Blood 4.2 g/dL (2.2-4.0); Potassium, Blood 4.5 mmol/L (3.5-5.5); Total Protein, Blood 7.8 g/dL (6.4-8.2)
[2021-11-23 10:37] LABS: Influenza A, PCR NEGATIVE (NEGATIVE); Influenza B, PCR NEGATIVE (NEGATIVE); Resp Syncytial Virus, PCR NEGATIVE (NEGATIVE); SARS-Cov-2 (COVID-19) PCR, MMC NEGATIVE (NEGATIVE)
[2021-11-23 13:03] LABS: Base Excess Venous 3.4 mmol/L; Bicarbonate Venous 26.4 mmol/L (24.0-30.0); PCO2 Venous 46.9 mmHg (38-42); pH Blood Venous 7.39 (7.34-7.37)
[2021-11-23 13:04] LABS: PO2 Venous 54.7 mmHg (38-42)
[2021-11-23 13:45] LABS: Source, Urine Foley catheter
[2021-11-23 14:13] LABS: Bilirubin, Urine Neg (Neg); Blood, Urine 2+ (Neg); Color, Urine Yellow (P-Yellow); Glucose Qualitative, Urine 1+ (Neg); Ketones, Urine Neg (Neg); Leukocyte Esterase, Urine Neg (Neg); Nitrite, Urine Neg (Neg); Protein, Urine 3+ (Neg); Urobilinogen, Urine NORM (Normal)
[2021-11-23 16:11] LABS: Appearance, Urine Hazy (Clear)
[2021-11-23 16:14] LABS: Bacteria Mod /hpf; Granular Casts 0-2 /lpf (0); Squamous Epithelial Cells Few /hpf (Few)
[2021-11-23 16:15] LABS: Amorphous Light (0-Heavy)
--- NOTE | 2021-11-23 18:06 | NUR ---
SHIFT SUMMARY PATIENT ARRIVED TO UNIT AROUND 1200. A/O, ON BIPAP 04/15 WITH FI02 30%. HEART RATE CONTROLLED IN 80'S. STABLE B/P. MADSEN PATENT AND DRAINING CLEAR YELLOW URINE. DR. ELDER ARRIVED TO ROOM, HISTORY OBTAINED AND MEDICATIONS ORDERED. CLARIFIED THE DUPLICATE ORDERS OF LASIX AND PREDNISONE DUE TO ALREADY ADMINISTERED IN ED. HELD 1400 DOSES. CRITICAL TROPS REPORTED. PATIENT CURRENTLY ON 3L 02 VIA NC WITH SATS AT 95%, TOLERATING PO INTAKE WELL. TO BEDSIDE. WILL REPORT TO ONCOMING RN.
--- NOTE | 2021-11-23 20:42 | NUR ---
PATIENT RESTING QUIETLY IN BED WATCHING TV. VERBALIZED THAT SHE IS FEELING BETTER, BUT C/O LEG CRAMPS TO BOTH LEGS, AND REQUESTING FLONASE SPRAY THAT SHE USES AT HOME TO HELP HER TREE OXYGEN. PATIENT CONTINUES TO BE SOB WITH SLIGHT ACTIVITY AND HAS WHEEZING T/O. DRY NONPRODUCTIVE COUGH. DOCTOR RY NOTIFIED OF PATIENTS LEG CRAMPS, AND GIVEN UPDATE, SEE NEW ORDERS. PLAN TO DRAW CHEM WITH NEXT TROP DRAW.
[2021-11-23 22:35] LABS: Bun/Creatinine Ratio 24.4 (12.0-20.0); Calcium, Blood 8.8 mg/dL (8.5-10.1); Creatinine, Blood 0.78 mg/dL (0.40-1.00); Potassium, Blood 4.2 mmol/L (3.5-5.5)
--- NOTE | 2021-11-23 23:11 | NUR ---
DOCTOR RAZA NOTIFIED OF CONTINUING TO RISE TROP I. WILL CONTINUE TO MONITOR
--- NOTE | 2021-11-24 05:00 | NUR ---
DOCTOR MILES NOTIFIED OF CONTINUED INCREASING TROP I, INVERTED T WAVES, AND PROLONGED QT. PATIENT DENIES CHEST PAIN AND VERBALIZED THAT SHE FEELS BETTER THIS AM AND VERBALIZED SHE HAS BEEN SLEEPING COMFORTABLY. NO LONGER HAVING LEG CRAMPS, SLIGHT NUMBNESS TO RIGHT FOOT.
--- NOTE | 2021-11-24 06:23 | NUR ---
SUMMARY PATIENT RESTING QUIETLY, SLEEPING OFF AND ON T/O NIGHT ON 3L/NC WHICH SHE WEARS AT HOME. AWAKENING TO SLIGHT STIMULI. VERBALIZED THAT SHE IS FEELING LESS SOB THIS MORNING, CONTINUES TO HAVE SOB WITH EXERTION. TROP I CONTINUES TO BE ELEVATED. EKG OBTAINED THIS MORNING DUE TO PROLONGED QT AND INVERTED T WAVES.
[2021-11-24 07:15] LABS: Hematocrit 37.4 % (33.0-51.0); Hemoglobin 12.6 g/dL (11.5-16.0); Mean Corpuscular HGB 31.7 pg (26.0-34.0); Mean Corpuscular HGB Conc 33.7 g/dL (31.5-36.5); Mean Corpuscular Volume 94 fL (80-100); Mean Platelet Volume 9.9 fL (9.1-12.4); Platelet Count 180 K/mm3 (150-400); RDW Standard Deviation 48.5 fL (35.1-46.3); Red Blood Cell Count 3.97 M/mm3 (3.80-5.20); White Blood Cell Count 7.77 K/mm3 (4.00-11.30)
[2021-11-24 07:29] LABS: Magnesium, Blood 2.2 mg/dL (1.6-2.4)
[2021-11-24 07:30] LABS: Albumin, Blood 3.2 g/dL (3.4-5.0); Anion Gap 10 mmol/L (6-16); Blood Urea Nitrogen 15 mg/dL (8-24); CO2, Blood 28 mmol/L (21-32); Calcium, Blood 9.1 mg/dL (8.5-10.1); Chloride, Blood 99 mmol/L (98-108); Creatinine, Blood 0.71 mg/dL (0.40-1.00); Glomerular Filtration Rate 91 (60-); Glucose, Blood 128 mg/dL (70-99); Potassium, Blood 3.5 mmol/L (3.5-5.5); Sodium, Blood 137 mmol/L (136-145)
--- NOTE | 2021-11-24 08:00 | NUR ---
ASSUMED CARE OF PT, REPORT RCV'D FROM GUEVARA Cuevas RN. PT ALERT AND ORIENTED, ANXIOUS SITTING UPRIGHT IN BED. PT TACHYPNEIC WITH SHALLOW BREATHING AT START OF SHIFT , SATS LOW 90% ON 3LNC, HR INCREASED TO 130-140'S. PT PLACED ON BIPAP 12/8, 40%, MEDICATED FOR ANXIETY CARDIOLOGY AND PRIMARY PHYSICIAN AT BEDSIDE. ORDER TO BEGIN HEPARIN GTT AND AMIODARONE GTT. PT REPORTS FEELING UNABLE TO SWALLOW PO MEDICATION D/T THROAT TIGHTNESS, WILL HOLD ALL PO MEDICATIONS D/T ASPIRATION RISK. CURRENTLY ON AMIODARONE 34.5 ML/HR, HEPARIN GTT AT 18 U/KG/HR (62 KG DOSE WT). PT RESTING COMFORTABLY ON BIPAP, CURRENT HR 76 BPM. PT'S UPDATE WITH PT'S STATUS AND PLAN OF CARE. SEE FULL SHIFT ASSESSMENT.
[2021-11-24 08:54] LABS: Anti-Xa UFH, PHA Monitoring <0.10 IU/mL; International Normalized Ratio 1.06; Prothrombin Time Results 11.1 Sec (9.7-11.5)
--- NOTE | 2021-11-24 14:31 | NUR ---
Spiritual Care Pt. Request Pt. is awake in bed and welcomes my visit. Spouse Jake is present. Pt. is unsettled about her diagnosis. Listen empathetically with a a calming presence. Pt. displays evidence of discouragment. Establish rapport and pray for Pt. Pt. and spouse verbalize gratitude for the spiritual care visit.
--- NOTE | 2021-11-24 16:15 | NUR ---
Supportive visit this afternoon. Pt resting in bed and reports 3/10 chest pain. Pt reports dyspnea with speaking. Pt's spouse at bedside. Reviewed plan of care and offered therapeutic listening. Pt and spouse report daughter is supportive of needs. Pt reports moderate anxiety due to current medical issues she is facing. Continued therapeutic listening. Ended visit to allow Pt to rest. Pt agreeable for this RN to F/U for supportive visits. Palliative Care will remain available.
--- NOTE | 2021-11-24 18:28 | NUR ---
SHIFT SUMMARY PT REMAINS ALERT AND ORIENTED. BIPAP ON STANDBY SINCE 1300, PT ON 3L NC WITH SATS>90%. PT CONTINUES TO REPORT 3/10 PRESSURE CHEST PAIN WITH ANXIETY. TREATED PER EMAR WITH MODERATE RESULTS. PT NO LONGER REPORTS DIFFICULTY SWALLOWING, APPETITE INCREASING. 1100 ML URINARY OUTPUT FROM MADSEN. VSS. WILL REPORT TO ONCOMING NURSE.
--- NOTE | 2021-11-24 20:10 | NUR ---
PATIENT IN BED, VERBALIZED FEELING RESTLESS. IV TO LEFT AC WITH HEPARIN INFUSION LEAKING. SITE DC'D AND NEW IV PLACED TO RIGHT FA AND LEFT FA BOTH 20G. PHARMACY NOTIFIED OF HEPARIN BEING OFF DURING IV REPLACEMENT. AMIODARONE DRIP CONTINUES MONITOR SHOWING SINUS WITH RATE HIGH 80'S TO 90'S. PATIENT CONTINUES WITH WHEEZES T/O AND SOB WITH SLIGHT ACTIVITY. ON 3L/NC IN PLACE AND BIPAP IN ROOM NEEDED. XANAX GIVEN FOR ANXIETY. AND THERAPEUTIC CONVERSATION PROVIDED DURING CARE.
--- NOTE | 2021-11-24 21:40 | NUR ---
INCREASED SOB AND WHEEZING WITH LINEN CHANGE AND PERICARE DUE TO MADSEN LEAKING. MAINTAINING BIOX 93-96% HEART RATE UP TO 110 REMAINING SINUS RHYTHM. PATIENT ABLE TO CALM SELF AND BRUSH TEETH WITH MIN SET UP WITH SOME CALM REASSURANCE
[2021-11-25 03:15] LABS: Hematocrit 37.9 % (33.0-51.0); Hemoglobin 12.7 g/dL (11.5-16.0); Mean Corpuscular HGB 31.5 pg (26.0-34.0); Mean Corpuscular HGB Conc 33.5 g/dL (31.5-36.5); Mean Corpuscular Volume 94 fL (80-100); Mean Platelet Volume 9.7 fL (9.1-12.4); Platelet Count 184 K/mm3 (150-400); RDW Coefficient Variation 14.1 % (11.7-14.2); RDW Standard Deviation 48.6 fL (35.1-46.3); Red Blood Cell Count 4.03 M/mm3 (3.80-5.20); White Blood Cell Count 8.67 K/mm3 (4.00-11.30)
[2021-11-25 03:38] LABS: Magnesium, Blood 2.1 mg/dL (1.6-2.4)
[2021-11-25 03:39] LABS: Albumin, Blood 3.2 g/dL (3.4-5.0); Anion Gap 7 mmol/L (6-16); Blood Urea Nitrogen 21 mg/dL (8-24); Bun/Creatinine Ratio 29.2 (12.0-20.0); CO2, Blood 29 mmol/L (21-32); Chloride, Blood 97 mmol/L (98-108); Creatinine, Blood 0.72 mg/dL (0.40-1.00); Glomerular Filtration Rate 89 (60-); Glucose, Blood 179 mg/dL (70-99); Phosphorus, Blood 3.2 mg/dL (2.5-4.9); Potassium, Blood 3.7 mmol/L (3.5-5.5); Sodium, Blood 133 mmol/L (136-145)
--- NOTE | 2021-11-25 05:57 | NUR ---
SUMMARY PATIENT SLEEPING OFF AND ON T/O NIGHT. MEDICATED TWICE WITH XANAX TO HELP HER RELAX. AMIO DRIP CONTINUES, HEPARIN TITRATED PER PHARMACY SEE FLOW SHEET. CONTINUES ON 3L/NC NO NEED FOR BIPAP DURING THE NIGHT.
--- NOTE | 2021-11-25 10:23 | NUR ---
ASSUMED CARE OF PT, REPORT RCV'D FROM LANDON WATERMAN. PT ALERT AND ORIENTED, ANXIOUS SITTING UP IN BED. PT REFUSING BREATHING TX STATING HER CONCERN THAT IT WILL INCREASE HER HEART RATE. PT TREATED FOR ANXIETY PER EMAR. PT REPORTS 3/10 PAIN, STATES PAIN IS "HEART NOT LUNG...MAYBE ANXIETY". SATS>95% ON 3L NC, PT UP TO CHAIR WITH MODERATE ASSIST, INCREASED RR WITH EXERTION-SATS MAINTAINED>90%. PT REQUESTING BIPAP AT THIS TIME. AMIODARONE OFF AT 0900. HEPARIN REMAINS @17 UNITS. PTS UPDATED THIS MORNING. SEE FULL SHIFT ASSESSMENT.
--- NOTE | 2021-11-25 13:03 | NUR ---
SEDATION REMAINS ON STANDBY, PT TRACKS MOVEMENT TO THE LEFT-NO EYE MOVEMENT TO RIGHT SIDE, OCCASIONAL NYSTAGMUS NOTED. NO BILATERAL UPPER/LOWER EXTREMITY MOVEMENT, DOES NOT WITHDRAW FROM PAIN-PT REMOVED FROM RESTRAINTS. POSITIVE FOR COUGH, MODERATE AMOUNT OF THICK MALLORY/YELLOW SECRETIONS FROM ETT. PTS FAMILY AT BEDSIDE, UPDATED.
--- NOTE | 2021-11-25 18:24 | NUR ---
SHIFT SUMMARY NO ACUTE CHANGES THIS SHIFT. PT UP TO CHAIR ALL DAY ON 3L NC WITH SATS>90%. PT MEDICATED FOR ANXIETY REGULARLY WITH GOOD RELIEF. 1400 ML URINARY OUTPUT THIS SHIFT. PT AND AWARE OF PLAN FOR THORACENTESIS TOMORROW. HEPARIN GTT @16 UNITS/KG/HR. VSS T/O SHIFT. WILL REPORT TO ONCOMING NURSE.
--- NOTE | 2021-11-26 06:02 | NUR ---
SHIFT SUMMARY A&OX4. PAIN AND ANXIETY MANAGED EFFECTIVELY ON PRN. PT REQUESTED TO REMAIN IN CHAIR OVERNIGHT. ON 3L NC. PRN BREATHING TREATING. NON PRODUCTIVE COUGH. WHEEZING UPPER DIMINISHED LOWER LOBES. MADSEN DRAINING PINK TINGED URINE CLEARED TO DARK YELLOW SHIFT PROGRESSED. HEPARIN TITRATED PER PHARMACY .
--- NOTE | 2021-11-26 07:15 | NUR ---
BEGINNING OF SHIFT Assumed care of pt at 0700. Report received from Scot NAVARRETE. Pt A&O x 4. Answers questions, follows commands, verbalizes needs. Pleasant and cooperative with care. Sitting up in recliner chair. SpO2 90% or greater with 3 LPM NC, which is home dose of oxygen. [place] in to see patient. Provider states that patient may be PCU status.
[2021-11-26 07:28] LABS: Albumin, Blood 3.3 g/dL (3.4-5.0); Anion Gap 7 mmol/L (6-16); Blood Urea Nitrogen 31 mg/dL (8-24); Bun/Creatinine Ratio 40.8 (12.0-20.0); CO2, Blood 29 mmol/L (21-32); Calcium, Blood 9.6 mg/dL (8.5-10.1); Chloride, Blood 98 mmol/L (98-108); Creatinine, Blood 0.76 mg/dL (0.40-1.00); Glomerular Filtration Rate 84 (60-); Glucose, Blood 139 mg/dL (70-99); Phosphorus, Blood 4.5 mg/dL (2.5-4.9); Potassium, Blood 4.3 mmol/L (3.5-5.5); Sodium, Blood 134 mmol/L (136-145)
--- NOTE | 2021-11-26 10:24 | NUR ---
Spiritual Care Visit. Pt. is sitting up in a chair and welcomes my visit. Pt. is pleasant and is only unsettled because of the length of time in the hospital. Listen empathetically with a calming presence. Pt. displays evidence of being hopeful and engaged with her prognosis. Re-establish rapport. Prayed with Pt. Pt. verblized gratitude for the spiritual care visit.
--- NOTE | 2021-11-26 10:40 | NUR ---
Call placed to pharmacy to inquire about time frame for stopping heparin with regard to scheduled procedure. Per pharmacist, stop heparin as provider requests. Clarified stopping heparin with imaging department and provider performing thoracentesis requesting it is stopped one hour prior to procedure. Heparin stopped at 1000; thoracentesis scheduled for 1100.
--- NOTE | 2021-11-26 12:00 | NUR ---
Pt to PCU 17 after thoracentesis. Report given to Stephan NAVARRETE. Discussed heparin drip with Dr Paris. Provider states he will give orders to PCU nurse regarding anticoagulation upon result of thoracentesis fluid. Chart, medications, and belongings transferred to PCU 17.
--- NOTE | 2021-11-26 12:02 | NUR ---
REPORT RECIEVED FROM NETWORKING ENGINEER AT 1153.
[2021-11-26 12:09] LABS: Automated BF WBC Count 0.522 K/mm3 (0-999); Body Fluid WBC Count 522 /mm3 (0-999); RBC Count, Body Fluid 80000 /mm3 (0-0)
[2021-11-26 12:27] LABS: Albumin, Body Fluid 2.5 g/dL; Lactate Dehydrogenase, Body Fl 176 U/L; Triglycerides, Body Fluid 22 mg/dL
[2021-11-26 13:09] LABS: Appearance, Body Fluid Cloudy (Clear); Color, Body Fluid Red (None-Yellow); Total Cell Count, Body Fluid 100
--- NOTE | 2021-11-26 14:37 | NUR ---
UPDATE CONTACTED ABOUT HEPARIN ORDER AT 1430. ORDERED HEPARIN TO BE DC'D AND LOVENOX TO REPLACE HEPARIN. PHARMACY NOTIFIED.
--- NOTE | 2021-11-26 18:00 | NUR ---
SHIFT SUMMARY PT A/O X4 AND COOPERATIVE OF CARE. VSS SINCE ARRIVAL TO UNIT WITH 02 SATS >96% ON 4L NC. NO REPORT OF CHEST PAIN/PRESSURE SINCE ARRIVAL TO UNIT. NO REPORT OF SOB SINCE ARRIVAL TO UNIT. PT HAS MADSEN IN PLACE DRAINING TO GRAVITY. PT HAD THORACENTESIS PERFORMED, 700ML RED FLUID REMOVED. PT REPORTS "FEELING MUCH BETTER SINCE THE FLUIDS HAVE BEEN TAKEN OFF." HEPARIN GTT STOPPED AT 1000 PT WENT FOR PROCEDURE, DC'D HEPARIN AND REPLACED IT WITH LOVENO, SEE EMAR.
--- NOTE | 2021-11-26 21:08 | NUR ---
ASSUMED CARE OF PATIENT AT APPROXIMATELY 1905 FROM RODY Gu RN. PATIENT ALERT AND ORIENTED X4; SITTING IN RECLINER VISITING WITH FAMILY DURING BEDSIDE REPORT. PATIENT DENIES PAIN, DIZZINESS, AND NAUSEA. PATIENT REPORTS NUMBNESS AND TINGLING OFF AND ON IN LEGS. SR ON TELE; OXYGEN SATURATION ABOVE 90% ON 3LPM VIA NC (BASELINE); BIPAP IN ROOM FOR SLEEP. PATIENT COMPLAIN OF URINARY CATHETER LEAKING FOR DAYS; PATIENT REPORTS USING TOWEL TO SOAK UP LEAKING URINE AND REQUESTED ON DAYSHIFT FOR CATHETER TO BE REMOVED. CATHETER REMOVED AND PATIENT PUT UNDERWEAR AND PADS IN PLACE. SBA OUT OF BED TO BEDSIDE COMMODE. 2X PIV S/L.
--- NOTE | 2021-11-27 06:02 | NUR ---
PATIENT SLEPT ABOUT SEVEN HOURS IN THE RECLINER; NO ACUTE CHANGES TO REPORT.
[2021-11-27 11:20] LABS: Source, Urine Voided
[2021-11-27 11:29] LABS: Appearance, Urine Clear (Clear); Bilirubin, Urine Neg (Neg); Blood, Urine 5+ (Neg); Color, Urine Yellow (P-Yellow); Glucose Qualitative, Urine Neg (Neg); Ketones, Urine Neg (Neg); Leukocyte Esterase, Urine Neg (Neg); Nitrite, Urine Neg (Neg); Protein, Urine Neg (Neg); Urobilinogen, Urine NORM (Normal)
[2021-11-27 12:06] LABS: Red Blood Cells, Urine 25-50 /hpf (0-2); White Blood Cells, Urine 0-2 /hpf (0-5)
[2021-11-27 12:07] LABS: Bacteria Not Seen /hpf; Squamous Epithelial Cells Rare /hpf (Few)
[2021-11-27] MEDS ORDERED: DOXY100 PO (13:24)
[2021-11-27] MEDS ORDERED: Prednisone10 MG PO (13:26)
[2021-11-27 14:03] LABS: PCO2 Arterial 46.2 mmHg (35-45); PO2 Arterial 76.6 mmHg (80-100); pH Blood Arterial 7.46 (7.35-7.45)
== END 2021-11-27 15:44 | disposition home or self-care (01) | DRG 291 ==
LOC: ER 09:25 → ICUW 09:26 → PCU 11:36 → ICUW 11:36 → PCU 11-26 12:18
PROVIDERS: Hospitalist; Internal Medicine; Student in an Organized Health Care Education/Training Program; ADMIT Family Medicine
PROC: 5A09457 Assistance with Respiratory Ventilation, 24-96 Consecutive Hours, Continuous Positive Airway Pressure (ICD-10-PCS; 2021-11-23)
PROC: 0W993ZZ Drainage of Right Pleural Cavity, Percutaneous Approach (ICD-10-PCS; principal; 2021-11-26)
DX: I11.0 Hypertensive heart disease with heart failure (principal); I50.33 Acute on chronic diastolic (congestive) heart failure; J96.01 Acute respiratory failure with hypoxia; J96.02 Acute respiratory failure with hypercapnia; I47.1 Supraventricular tachycardia; E87.2 Acidosis; J44.1 Chronic obstructive pulmonary disease with (acute) exacerbation; I16.1 Hypertensive emergency; I24.8 Other forms of acute ischemic heart disease; J91.0 Malignant pleural effusion; I51.81 Takotsubo syndrome; Z66 Do not resuscitate; Z20.822 Contact with and (suspected) exposure to COVID-19; M81.0 Age-related osteoporosis without current pathological fracture; E55.9 Vitamin D deficiency, unspecified; I48.0 Paroxysmal atrial fibrillation; M19.90 Unspecified osteoarthritis, unspecified site; Z92.3 Personal history of irradiation; Z92.21 Personal history of antineoplastic chemotherapy; Z87.891 Personal history of nicotine dependence; Z90.11 Acquired absence of right breast and nipple; Z98.890 Other specified postprocedural states; Z98.891 History of uterine scar from previous surgery; Z85.3 Personal history of malignant neoplasm of breast; Z85.118 Personal history of other malignant neoplasm of bronchus and lung; Z99.81 Dependence on supplemental oxygen; Z88.0 Allergy status to penicillin; Z88.1 Allergy status to other antibiotic agents; Z91.041 Radiographic dye allergy status; Z79.899 Other long term (current) drug therapy
CPT/HCPCS: 0241U; 32555; 36415; 36600; 51702; 71045; 80048; 80053; 80069; 81001; 82042; 82803; 82947; 83605; 83615; 83735; 83880; 84145; 84157; 84478; 84484; 85025; 85027; 85520; 85610; 85730; 87070; 87086; 87205; 88108; 88305; 88341; 88342; 88360; 89051; 93005; 93010; 94640; 94644; 94660; 94664; 94762; 96365-59; 96366-59; 96367-59; 96368; 96375-59; 99291-25; A9270; C8929; J0282; J1644; J1650; J1940; J2270; J2930; J3010; J3475; J7040; J7060; Q9957

== ENCOUNTER 2022-02-04 07:07 | Emergency (ER) | payer MEDICARE ==
[~2022-02-04] VITALS: Ht 154.9 cm; Wt 81.7 kg
[~2022-02-04 07:07] MED LIST changes: +DOXY100 PO; +Prednisone10 MG PO
[2022-02-04 07:49] LABS: PCO2 Arterial 84 mmHg (35-45); PO2 Arterial 79.8 mmHg (80-100); pH Blood Arterial 6.93 (7.35-7.45)
[2022-02-04 08:00] LABS: BASOPHILS ABSOLUTE AUTO 0.14 K/mm3 (0.00-0.23); BASOPHILS PERCENT AUTO 1 % (0-2); EOSINOPHILS ABSOLUTE AUTO 0.27 K/mm3 (0.00-0.68); EOSINOPHILS PERCENT AUTO 2 % (0-6); Hematocrit 51.3 % (33.0-51.0); Hemoglobin 15.3 g/dL (11.5-16.0); Mean Corpuscular HGB 31.3 pg (26.0-34.0); Mean Corpuscular HGB Conc 29.8 g/dL (31.5-36.5); Mean Platelet Volume 10.2 fL (9.1-12.4); NRBC ABSOLUTE 0.22 K/mm3 (0.00-0.02); NRBC Auto 1.4 /100 WBC (0.0-0.2); Platelet Count 333 K/mm3 (150-400); RDW Coefficient Variation 14.2 % (11.7-14.2); RDW Standard Deviation 55.5 fL (35.1-46.3); Red Blood Cell Count 4.89 M/mm3 (3.80-5.20)
[2022-02-04 08:07] LABS: Albumin, Blood 3.3 g/dL (3.4-5.0); Albumin/Globulin Ratio 0.8 (0.8-1.8); Bilirubin, Total 0.4 mg/dL (0.1-1.0); Bun/Creatinine Ratio 12.3 (12.0-20.0); Calcium, Blood 9.2 mg/dL (8.5-10.1); Creatinine, Blood 1.06 mg/dL (0.40-1.00); Globulin, Blood 4.1 g/dL (2.2-4.0); Magnesium, Blood 2.8 mg/dL (1.6-2.4); Potassium, Blood 4.8 mmol/L (3.5-5.5); Total Protein, Blood 7.4 g/dL (6.4-8.2)
[2022-02-04 08:11] LABS: IMMATURE GRAN ABSOLUTE AUTO 0.63 K/mm3 (0.00-0.10); IMMATURE GRAN PERCENT AUTO 4 % (0-1); LYMPHOCYTES PERCENT AUTO 43 % (21-46); MONOCYTES ABSOLUTE AUTO 1.54 K/mm3 (0.16-1.47); MONOCYTES PERCENT AUTO 10 % (4-13); Mean Corpuscular Volume 105 fL (80-100); NEUTROPHILS ABSOLUTE AUTO 6.42 K/mm3 (1.96-9.15); NEUTROPHILS PERCENT AUTO 41 % (41-73)
[2022-02-04 08:50] LABS: Chloride (POC) 95 mmol/L (98-108); Creatinine (POC) 1.1 mg/dL (0.6-1.0); Glucose (ISTAT POC) 356 mg/dL (70-99); Hemoglobin (POC) 17.7 g/dL (12.0-16.0); Potassium (POC) 4.7 mmol/L (3.5-5.5); Sodium (POC) 131 mmol/L (135-148); Total CO2 (POC) 24 mmol/L (21-32)
[2022-02-04 08:58] LABS: PCO2 Arterial 60.6 mmHg (35-45); PO2 Arterial 55.3 mmHg (80-100); pH Blood Arterial 7.22 (7.35-7.45)
[2022-02-04 09:39] LABS: Influenza A, PCR NEGATIVE (NEGATIVE); Influenza B, PCR NEGATIVE (NEGATIVE); Resp Syncytial Virus, PCR NEGATIVE (NEGATIVE); SARS-Cov-2 (COVID-19) PCR, MMC NEGATIVE (NEGATIVE)
[2022-02-04 09:55] LABS: Base Excess Venous -7.3 mmol/L; Bicarbonate Venous 17.7 mmol/L (24.0-30.0); PCO2 Venous 54.6 mmHg (38-42); pH Blood Venous 7.19 (7.34-7.37)
--- NOTE | 2022-02-04 10:30 | NUR ---
Patient is recently moved to a DNR/DNI status and all airway support is removed, family is bedside. They are tearful as they explain pt's wishes to not to be intubated. They explain the horrible health battles she has had in the last few years. They share about pt's Shinto beliefs and their approval for a prayer being said. As prayer is being given, pt visibly stops active breathing. I conduct a brief life review, as pt peacefully expires. I ask family about home choices and we agree to have with Johnny Thompson of [facility] provide their services. I provide grief support and provide information about bereavement resources. Family responds well and show signs of being comforted. I walk them out off ED.
== END 2022-02-04 10:12 ==
LOC: ER 07:07 → EOR 09:29 → ER 09:29 → ICUW 09:29 → ICUE 09:29 → ICUW 09:50 → ICUE 10:12 → ER 10:12
PROVIDERS: Student in an Organized Health Care Education/Training Program
DX: I11.0 Hypertensive heart disease with heart failure (principal); I50.1 Left ventricular failure, unspecified; I50.9 Heart failure, unspecified; J44.9 Chronic obstructive pulmonary disease, unspecified; I46.2 Cardiac arrest due to underlying cardiac condition; Z91.041 Radiographic dye allergy status; Z88.0 Allergy status to penicillin; Z88.1 Allergy status to other antibiotic agents; Z79.82 Long term (current) use of aspirin; Z79.899 Other long term (current) drug therapy; Z79.51 Long term (current) use of inhaled steroids; Z87.891 Personal history of nicotine dependence; Z66 Do not resuscitate
CPT/HCPCS: 0241U; 31500; 36415; 36600; 51702; 71045; 71260; 80047; 80053; 82803; 83605; 83735; 83880; 84145; 84484; 85014; 85025; 92950; 93005; 93010; 94002; 96365; 96366; 96367; 96368; 96375-59; 96376; 99291-25; A9270; J0171; J1200; J1940; J2250; J2704; J2930; J3475; J7060; Q9967